=== PATIENT | male | born 1975 | race Caucasian/White ===

== ENCOUNTER → 2017-05-25 | Outpatient (CLI) | payer BC ==
[~2017-05-25] MED LIST: ALLDSR60
== END | disposition home or self-care (01) ==
LOC: C.PATHSPEC 17:58
PROVIDERS: ATTEND Dermatology
DX: B08.1 Molluscum contagiosum (principal)

== ENCOUNTER → 2017-06-17 | Outpatient (CLI) | payer BC | END | disposition home or self-care (01) | LOC: C.PATHSPEC 16:17 | PROVIDERS: ATTEND Dermatology | DX: B08.1 Molluscum contagiosum (principal); L72.0 Epidermal cyst ==

== ENCOUNTER → 2017-07-06 | Outpatient (CLI) | payer BC | END | disposition home or self-care (01) | LOC: C.PATHSPEC 17:25 | PROVIDERS: ATTEND Dermatology | DX: B08.1 Molluscum contagiosum (principal) ==

== ENCOUNTER → 2017-07-12 | Outpatient (CLI) | payer BC | END | disposition home or self-care (01) | LOC: C.PATHSPEC 14:41 | PROVIDERS: ATTEND Dermatology | DX: L72.0 Epidermal cyst (principal); B08.1 Molluscum contagiosum ==

== ENCOUNTER → 2017-07-23 | Outpatient (CLI) | payer BC | END | disposition home or self-care (01) | LOC: C.PATHSPEC 13:26 | PROVIDERS: ATTEND Dermatology | DX: B08.1 Molluscum contagiosum (principal) ==

== ENCOUNTER → 2017-08-03 | Outpatient (CLI) | payer BC | END | disposition home or self-care (01) | LOC: C.PATHSPEC 12:47 | PROVIDERS: ATTEND Dermatology | DX: B08.1 Molluscum contagiosum (principal) ==